=== PATIENT | male | born 2000 | race Two or more races ===

== ENCOUNTER 2023-11-06 18:03 | Emergency (ER) | payer MEDICAID, OTHER ==
[~2023-11-06] VITALS: Ht 180.3 cm; Wt 87.1 kg
[2023-11-06 19:15] VITALS: BP 133/89; PULSE 113; RESP 19; TEMP 97.8; O2SAT 98
[2023-11-06] MEDS ORDERED: AZIT-185 PO (21:17)
[2023-11-06] MEDS ORDERED: ALBUAER3 IN (21:17)
[2023-11-06] MEDS: DexAMETHasone SOD PHOS 10MG/1ML VIAL INJ IM ONE (21:27)
[2023-11-06 22:14] LABS: Rapid Influenza B Negative (Negative)
[2023-11-06 22:17] LABS: COVID19 ANTIGEN SOFIA FIA NEGATIVE (NEGATIVE)
[2023-11-06 22:23] LABS: Rapid Influenza A Positive (Negative)
== END 2023-11-06 21:41 | disposition home or self-care (01) ==
LOC: ER 18:03
DX: J22 Unspecified acute lower respiratory infection (principal); R05.9 Cough, unspecified; R50.9 Fever, unspecified; Z20.822 Contact with and (suspected) exposure to COVID-19; Z79.899 Other long term (current) drug therapy
CPT/HCPCS: 36415; 87426; 87804; 96372; 99283; J1100